=== PATIENT | male | born 1980 | race African-American/Black ===

== ENCOUNTER 2019-01-11 02:53 | Inpatient (IN) | payer MEDICAID ==
[2019-01-10] MEDS: BLOOD SUGAR DIAGNOSTIC 1 EACH STRIP IN SCH (22:00)
[~2019-01-11] VITALS: Ht 182.9 cm; Wt 63.5 kg
[2019-01-11 05:05] VITALS: BP 159/88
[2019-01-11] MEDS ORDERED: MAGNESIUM HYDROXIDE 30 ML UDC PO PRN (06:30)
[2019-01-11] MEDS ORDERED: HYDROMORPHONE INJ 0.5 MG/0.5 ML SYRINGE IV PRN (06:30)
[2019-01-11] MEDS ORDERED: HYDROCODONE/APAP 5/325MG 1 EACH TABLET PO PRN (06:30)
[2019-01-11] MEDS ORDERED: ZOLPIDEM TARTRATE 5 MG TABLET PO PRN (06:30)
[2019-01-11] MEDS ORDERED: ACETAMINOPHEN 325 MG TABLET PO PRN (06:30)
[2019-01-11] MEDS ORDERED: IV NS 0.9% 1,000 ML IV PRN (06:30)
[2019-01-11] MEDS ORDERED: ONDANSETRON HCL/PF 4 MG/2 ML VIAL IVP PRN (06:30)
[2019-01-11] MEDS ORDERED: DEXTROSE 50%-WATER 50 ML DISP.SYRIN IV PRN ×2 (06:30→13:00)
[2019-01-11] MEDS ORDERED: Z GUARD REMEDY 2 OZ OINT TP PRN (06:30)
[2019-01-11] MEDS: BLOOD SUGAR DIAGNOSTIC 1 EACH STRIP IN SCH ×6 (07:56→21:18)
[2019-01-11 08:00] VITALS: BP 127/79
[2019-01-11] MEDS ORDERED: HYDROMORPHONE 1 MG/1 ML DISP.SYRIN IV PRN (08:30)
[2019-01-11] MEDS: INSULIN REGULAR, HUMAN 100 UNIT/ML 3 ML VIAL SQ PRN ×3 (12:07→21:21)
[2019-01-11] MEDS: HYDROMORPHONE 1 MG/1 ML DISP.SYRIN IV PRN ×3 (12:34→20:59)
[2019-01-11] MEDS: diphenhydrAMINE HCL 50 MG/ML VIAL IV PRN ×2 (12:52→20:09)
[2019-01-11] MEDS ORDERED: *INSULIN REGULAR(HUMULIN R)HUM 100 UNIT/ML VIAL SQ PRN (13:00)
--- NOTE | 2019-01-11 15:06 | NUR ---
RECEIVED PATIENT AWAKE, WALKING AROUND, BELIGERANT AND AGITATED. PATIENT REFUSED ALL INTERVENTIONS INCLUDING BLOOD DRAW, BLOOD SUGAR CHECK AND VITAL SIGNS. PATIENT REPEATEDLY ASKING FOR NARCOTIC PAIN MEDICATION. PATIENT YELLED AT RN ORIGINALLY ASSIGNED TO HER USING FOUL AND BERATIVE LANGUAGE. PATIENT A/O X 4, NO SOB, AMBULATORY. WILL CONTINUE TO MONITOR.
--- NOTE | 2019-01-11 15:09 | NUR ---
MS RN NOTE PATIENT BLOOD SUGAR 594 ON FIRST CHECK, <600 ON SECOND CHECK. 10 UNITS REGULAR INSULIN GIVEN PER PROTOCOL. MD NOTIFIED. MD ORDERED AGRESSIVE ACHS SLIDING SCALE. ALSO ORDERED 25 MG BENADRYL. BLOOD SUGAR RECHECKED AT 1300 AND FOUND TO BE 477. 10 UNITS INSULIN COVERAGE GIVEN PER PROTOCOL.. PATIENT REFUSED NEXT BLOOD SUGAR CHECK AT 1330. NO S/S OF HYPERGLYCEMIA NOTED. WILL RECHECK SUGAR SOON PATIENT ALLOWS.
--- NOTE | 2019-01-11 15:17 | NUR ---
MS RN NOTE PATIENT ACTING THREATENING AND VERBALLY ABUSIVE TO RN. PATIENT CONTINUES TO REFUSE CARE. PATIENT CHANGED CLOTHES AND WALKED OUT OF HOSPITAL. PATIENT RETURNED AFTER SECURITY CALLED. PATIENT CONTINUING HIS AGRESSIVE BEHAVIOR AND RFUSAL OF CARE. PATIENT SIGNED AMA AND INSISTS ON COMING AND GOING HE WANTS. WILL CONTINUE TO MONITOR. Addendum: 01/11/19 at 1643 by CHRISTOPHER HWANG RN FORM SIGNED BY PATIENT NOT AN AMA. CHARGE NURSE HAD PATIENT SIGN A "INFORMED CONSENT FOR SMOKING" FORM # [id number] (07/13) PATIENT STATES HE IS GOING IN AND OUT OF BUILDING TO SMOKE.
[2019-01-11 16:00] VITALS: BP_SYST 138; BP_SYST 142; BP_DIAS 79; BP_DIAS 85
[2019-01-11 17:06] LABS: BASOPHILS # (AUTO) 0.1 /CMM (0.0-0.2); BASOPHILS % (AUTO) 0.5 % (0.0-2.0); EOSINOPHILS % (AUTO) 1.4 % (0.0-6.0); HEMATOCRIT 33 % (39-51); HEMOGLOBIN 10.4 g/dL (13.5-17.5); LYMPHOCYTES # (AUTO) 4.5 /CMM (0.8-4.8); LYMPHOCYTES % (AUTO) 39.2 % (20.0-44.0); MEAN CORPUSCULAR HGB CONC 32 g/dl (31.0-36.0); MEAN CORPUSCULAR VOLUME 78 fL (80-96); MONOCYTES # (AUTO) 0.5 /CMM (0.1-1.30); MONOCYTES % (AUTO) 4.4 % (2.0-12.0); NEUTROPHILS # (AUTO) 6.2 /CMM (1.8-8.9); NEUTROPHILS % (AUTO) 54.5 % (43.0-81.0); PLATELET COUNT (AUTO) 710 /CMM (150-450); RED BLOOD CELL COUNT(AUTO) 4.19 MIL/uL (4.5-6.0); WHITE BLOOD COUNT (AUTO) 11.4 K/uL (4.3-11.0)
--- NOTE | 2019-01-11 17:18 | NUR ---
MS RN NOTE POST CRITICAL LAB BLOOD SUGAR DRAW ORDERED. PATIENT REFUSED EARLIER ATTEMPT FOR BLOOD DRAW. CURRENT ATTEMPT FOR BLOOD DRAW PENDING. WILL CONTINUE TO MONITOR. LATEST BLOOD SUGAR RESULT 66 @ 1700.
[2019-01-11 17:35] LABS: CALCIUM, SERUM 9.2 mg/dL (8.5-10.1); CREATININE 1.4 mg/dL (0.6-1.3); MAGNESIUM 1.7 mg/dL (1.8-2.4); POTASSIUM 4.2 mmol/L (3.5-5.1)
[2019-01-11 18:25] LABS: BAND % (MANUAL) 1 % (0.0-5.0); EOSINOPHILS % (MANUAL) 1 % (0-4); LYMPHOCYTES % (MANUAL) 35 % (16-48); MONOCYTES % (MANUAL) 5 % (0-11.0); NEUTROPHILS % (MANUAL) 58 (42-76)
[2019-01-11 20:00] VITALS: BP_SYST 120; BP_DIAS 49; BP_DIAS 59
--- NOTE | 2019-01-11 20:00 | NUR ---
MS RN NOTES RECEIVED PATIENT AWAKE AND PACING AROUND ROOM. PATIENT REMAINS CALM AND REDIRECTED BACK TO BED. CALL LIGHT WITHIN REACH. NO C/O PAIN OR DISCOMFORT. PERIPHERAL LINE INTACT, PATENT, AND REMAINS SALINE LOCKED. PRN BENADRYL 25MG IV GIVEN AND TOLERATED WELL. NURSING SELENA SYSTEM IMPLEMENTED DURING ALL NURSING CARE. BED IN LOW LOCK SETTING. ROOM FREE OF CLUTTER AND BELONGINGS KEPT NEAR BEDSIDE. WILL CONTINUE TO MONITOR.
--- NOTE | 2019-01-11 20:05 | NUR ---
MS RN CLOSING NOTE PATIENT AWAKE, WALKING AROUND, BELIGERANT AND AGITATED. PATIENT REFUSED NUMEROUS INTERVENTIONS EARLIER IN SHIFT, BUT DID ALLOW BLOOD DRAW IN THE AFTERNOON. RESULTS NOTED AND RELAYED TO REDIPPER RN. PATIENT A/O X 4, NO SOB, AMBULATORY. SAFETY MEASURES IN PLACE. CARE ENDORSED TO REDIPPER RN.
--- NOTE | 2019-01-11 21:00 | NUR ---
PATIENT NOTED WITH REPEATED EPISODE OF ELEVATED BLOOD GLUCOSE LEVEL OF 580. NO CHANGES IN LOC, PATIENT AWAKE A/O X4 AND REMAINS ASYMPTOMATIC. WITH STANDING NEW ORDER OF AGGRESSIVE SLIDING SCALE INSULIN COVERAGE, 20UNITS GIVEN PER PROTOCOL. WILL RECHECK BS AND MONITOR FOR EFFECTIVENESS.
--- NOTE | 2019-01-11 22:00 | NUR ---
PATIENT REFUSED BLOOD SUGAR RECHECK DESPITE CONTINUED ENCOURAGEMENT. WAS TOLD BY PATIENT TO GET OUT OF ROOM. WILL RETRY AGAIN WHEN PATIENT CALM AND READY TO COOPERATE.
--- NOTE | 2019-01-12 03:50 | NUR ---
PRN DILAUDID GIVEN FOR C/O GENERALIZED BODY PAIN. PATIENT ALLOWED FOR BS RECHECK AND NOTED AT 59. NO CHANGES IN LOC, AWAKE A/O X4 AND REMAINS ASYMPTOMATIC. ORANGE JUICE AND SNACKS PROVIDED. WILL RECHECK FOR EFFECTIVENESS.
[2019-01-12] MEDS: HYDROMORPHONE 1 MG/1 ML DISP.SYRIN IV PRN ×5 (03:53→21:42)
[2019-01-12 04:00] VITALS: BP 114/73
[2019-01-12] MEDS: diphenhydrAMINE HCL 50 MG/ML VIAL IV PRN ×2 (04:53→10:40)
--- NOTE | 2019-01-12 05:02 | NUR ---
PRN BENADRYL GIVEN ORDERED PER PATIENT REQUEST. BLOOD GLUCOSE RECHECKED AND NOTED AT 179. WILL CONTINUE TO MONITOR.
--- NOTE | 2019-01-12 06:27 | NUR ---
MS RN NOTES PATIENT ASLEEP IN BED WITH NO DISTRESS NOTED. CALL LIGHT WITHIN REACH. PERIPHERAL LINE INTACT AND PATENT. NO FURTHER C/O PAIN OR DISCOMFORT. BED IN LOW LOCK SETTING. ALL BELONGINGS KEPT NEAR BEDSIDE. WILL ENDORSE TO ONCOMING SHIFT.
[2019-01-12] MEDS: BLOOD SUGAR DIAGNOSTIC 1 EACH STRIP IN SCH ×4 (06:32→21:42)
[2019-01-12] MEDS: INSULIN REGULAR, HUMAN 100 UNIT/ML 3 ML VIAL SQ PRN ×2 (06:34→12:53)
[2019-01-12 08:00] VITALS: BP 120/73
[2019-01-12] MEDS ORDERED: diphenhydrAMINE HCL ELIX 25 MG/10 ML UDC PO PRN (11:30)
--- NOTE | 2019-01-12 13:13 | NUR ---
MS RN OPENING NOTE PATIENT RECEIVED SLEEPING IN BED. NO SOB OR DISTRESS NOTED. REPORTED A/O X 4, AMBULATORY. R FOOT IV SL #20 INTACT AND PATENT. SAFETY MEASURES IN PLACE. WILL CONTINUE TO MONITOR.
--- NOTE | 2019-01-12 13:19 | NUR ---
MS RN NOTE PATIENT ATTEMPTED TO REMOVE IV LINE AND PARTIALLY DISLODGED IT THUS REQUIRING RN TO REMOVE IT. NEW # 2O SL IV PLACED IN L FOOT.
--- NOTE | 2019-01-12 13:21 | NUR ---
MS RN NOTE. PATIENT CONTINUES TO BE BELIGERANT AND VERBALLY ABUSIVE. PATIENT REFUSED BLOOD DRAW AT 1200.
--- NOTE | 2019-01-12 13:52 | NUR ---
Social service consult requested by HEATHER Mistry, for possible homelessness. Pt. is a 38 year old male who was admitted to [facility] for sickle cell crisis. SW met with pt. bedside. Pt. is alert and oriented x 4. Pt. was rude at times during the assessment. Pt. states he resides at a transitional house located at [address] [place] [address] in . A. SW was about to ask more questions when pt. became rude and informed SW he doesn't want to answer anymore questions. Pt. is not cooperative. SW left pt's room.
[2019-01-12 16:00] VITALS: BP 110/69
[2019-01-12 16:56] LABS: HEMATOCRIT 33 % (39-51); MEAN CORPUSCULAR HGB CONC 33 g/dl (31.0-36.0); MEAN CORPUSCULAR VOLUME 77 fL (80-96); PLATELET COUNT (AUTO) 761 /CMM (150-450); RED BLOOD CELL COUNT(AUTO) 4.32 MIL/uL (4.5-6.0); WHITE BLOOD COUNT (AUTO) 8.8 K/uL (4.3-11.0)
[2019-01-12 17:03] LABS: CALCIUM, SERUM 9.2 mg/dL (8.5-10.1); CREATININE 0.8 mg/dL (0.6-1.3); POTASSIUM 4.2 mmol/L (3.5-5.1)
--- NOTE | 2019-01-12 19:51 | NUR ---
MS RN CLOSING NOTE PATIENT AWAKE IN BED. A/O X 4, AMBULATORY, NO SOB OR DISTRESS NOTED. PATIENT REFUSED NUMEROUS INTERVENTIONS NOTED THROUGHOUT THE DAY. PATIENT CONTINUES TO LEAVE PREMISES TO SMOKE. PATIENT CONTINUES TO BE NON-COMPLIANT, BELIGERANT AND VERBALLY ABUSIVE TO STAFF. R FOOT IV SL INTACT AND PATENT. SAFETY MEASURES IN PLACE. CALL LIGHT WITHIN REACH. CARE ENDORSED TO CHEMICAL COMPOUNDER HELPER RN.
[2019-01-12 20:00] VITALS: BP 131/84
--- NOTE | 2019-01-12 20:00 | NUR ---
RN NOTES RECEIVED PATIENT AWAKE IN BED, DENIES ANY PAIN AT THIS TIME, IV ACCESS ON HIS LEFT FOOT INTACT AND PATENT, NO SIGNS OF ACUTE RESPIRATORY DISTRESS NOTED, ALL NEEDS ATTENDED, PATIENTS ASKING FOR MORE SNACKS, ALL NEEDS ATTENDED WILL MONITOR ACCORDINGLY.
[2019-01-12 20:12] VITALS: BP 131/84
[2019-01-12 20:54] LABS: BAND % (MANUAL) 3 % (0.0-5.0); EOSINOPHILS % (MANUAL) 1 % (0-4); LYMPHOCYTES % (MANUAL) 29 % (16-48); MONOCYTES % (MANUAL) 6 % (0-11.0); NEUTROPHILS % (MANUAL) 61 (42-76)
[2019-01-12] MEDS ORDERED: INSULIN GLARGINE, 100 UNIT/ML CARTRIDGE SQ SCH (22:00)
[2019-01-13] MEDS: HYDROMORPHONE 1 MG/1 ML DISP.SYRIN IV PRN ×4 (01:51→14:12)
[2019-01-13 04:00] VITALS: BP 117/71
[2019-01-13 05:28] VITALS: BP 117/71
[2019-01-13] MEDS: INSULIN REGULAR, HUMAN 100 UNIT/ML 3 ML VIAL SQ PRN ×2 (06:04→11:44)
[2019-01-13] MEDS: BLOOD SUGAR DIAGNOSTIC 1 EACH STRIP IN SCH ×2 (06:06→11:41)
[2019-01-13 06:50] LABS: BASOPHILS # (AUTO) 0.1 /CMM (0.0-0.2); MONOCYTES # (AUTO) 0.5 /CMM (0.1-1.30)
--- NOTE | 2019-01-13 07:00 | NUR ---
MS RN INITIAL NOTES RECEIVED PT IN BED, A/OX3. PT C/O PAIN LEVEL 9 IN SHOULDERS AND BACK DESPITE DILAUDID IV AN HR AGO. ON ROOM AIR O2 SAT 100%. IV ON LEFT FOOT #20. PT WANTS TO TALK TO SW TODAY. BED IN LOCKED/LOWEST POSITION. CALL LIGHT IN REACH. WILL CONT TO MONITOR.
[2019-01-13 07:01] LABS: CALCIUM, SERUM 9.1 mg/dL (8.5-10.1); CREATININE 1.2 mg/dL (0.6-1.3); POTASSIUM 4.9 mmol/L (3.5-5.1)
--- NOTE | 2019-01-13 07:01 | NUR ---
RN NOTES ALL NEEDS ATTENDED, PATIENT IS ASLEEP AT THIS TIME, ALL NEEDS ATTENDED, INFORMED CABLE WAY OPERATOR CHOCO REGARDING PATIENTS BLOOD GLUCOSE THIS MORNING 401 MG/DL, UNIT OF INSULIN GIVEN PER SLIDING SCALE, PATIENT EATS SNACKS AND ASKS FOOD THROUGHOUT THE NIGHT. NO ORDER FROM CHOCO AT THIS TIME, WILL ENDORSE TO AM NURSE FOR CONTINUITY OF CARE.
[2019-01-13 07:19] LABS: EOSINOPHILS % (AUTO) 3.2 % (0.0-6.0); HEMATOCRIT 33 % (39-51); HEMOGLOBIN 10.9 g/dL (13.5-17.5); LYMPHOCYTES # (AUTO) 4.8 /CMM (0.8-4.8); MEAN CORPUSCULAR HGB CONC 33 g/dl (31.0-36.0); MEAN CORPUSCULAR VOLUME 78 fL (80-96); MONOCYTES % (AUTO) 5.1 % (2.0-12.0); NEUTROPHILS # (AUTO) 3.4 /CMM (1.8-8.9); NEUTROPHILS % (AUTO) 37.7 % (43.0-81.0); PLATELET COUNT (AUTO) 808 /CMM (150-450)
[2019-01-13 08:00] VITALS: BP 116/75
[2019-01-13 10:08] LABS: EOSINOPHILS % (MANUAL) 1 % (0-4); LYMPHOCYTES % (MANUAL) 35 % (16-48); MONOCYTES % (MANUAL) 6 % (0-11.0); NEUTROPHILS % (MANUAL) 58 (42-76)
--- NOTE | 2019-01-13 12:48 | NUR ---
MS RN NOTES NOTIFIED HEATHER RODRÍGUEZ OF PT C/O CHEST PAIN AND SHOULDER PAIN W/ NO RELIEF WITH DILAUDID. NO NEW ORDERS RECEIVED.
--- NOTE | 2019-01-13 15:45 | NUR ---
MS RN NOTES HEATHER RODRÍGUEZ ROUNDING WITH PATIENT. PT STATED, " I AM SICKLING. IM IN PAIN. IM NOT 3 YEARS OLD, " RIPPED OFF HIS IV AND TOLD CLOTHING ROOM SUPERVISOR TO GIVE HIM DISCHARGE PAPERS. PT WAS BLEEDING ON FLOOR WHEN I CHECKED ON HIM 10 MINS LATER. HE REFUSED TO LET ME INTERVENE. PT PUT ON HIS CLOTHES, ASKED FOR DISCHARGE PAPERS AND SLAMMED THE DOOR TO HIS ROOM. NURSING SENIOR TRAINER PROVIDED TAP CARD. CHARGE NURSE, ABA NOTIFIED.
[2019-01-13 16:00] VITALS: BP 107/63
--- NOTE | 2019-01-13 16:14 | NUR ---
MS RN NOTES PT REFUSING DISCHARGE WOUND PICS
[2019-01-13] MEDS ORDERED: Insulin Glargine,Hum SQ (16:42)
[2019-01-13] MEDS ORDERED: INSU100V28 SQ (17:17)
--- NOTE | 2019-01-13 17:35 | NUR ---
MS RN NOTES PT DISCHARGED WITH PRESCRIPTION/ DISCHARGE INSTRUCTIONS. PT REFUSED PICTURES/ BELONGINGS LIST SIGNATURE. PT PULLED OUT IV ON FOOT HIMSELF. GAVE PT TAP CARD. ALL NEEDS ATTENDED TO.
== END 2019-01-13 17:33 | disposition home or self-care (01) | DRG 662 ==
LOC: TELE1 04:37 → MEDSG1 07:55
PROVIDERS: ADMIT Nurse Practitioner Acute Care; ATTEND Registered Nurse
DX: D57.00 Hb-SS disease with crisis, unspecified (principal); N17.0 Acute kidney failure with tubular necrosis; E10.65 Type 1 diabetes mellitus with hyperglycemia; G89.4 Chronic pain syndrome; D56.1 Beta thalassemia; Z59.0 Homelessness; J45.909 Unspecified asthma, uncomplicated; E83.42 Hypomagnesemia; E78.5 Hyperlipidemia, unspecified; Z83.3 Family history of diabetes mellitus; Z83.2 Family history of diseases of the blood and blood-forming organs and certain disorders involving the immune mechanism; Z90.81 Acquired absence of spleen; Z79.4 Long term (current) use of insulin; F12.90 Cannabis use, unspecified, uncomplicated; Z76.5 Malingerer [conscious simulation]; D72.829 Elevated white blood cell count, unspecified; F11.10 Opioid abuse, uncomplicated; Z91.14 Patient's other noncompliance with medication regimen; Z91.19 Patient's noncompliance with other medical treatment and regimen
CPT/HCPCS: 36415; 80048-TC; 80061-TC; 82962-TC; 83021; 83735-TC; 84100-TC; 85025-TC; 85045-TC; 85660; 87081-TC; G0378; J1170; J1200; J1815; J7030; Q0163

== ENCOUNTER 2019-11-24 12:04 | Emergency (ER) | payer MEDICAID, OTHER ==
[~2019-11-24] VITALS: Ht 185.4 cm; Wt 77.1 kg
[~2019-11-24 12:04] MED LIST: INSU100V28 SQ; Insulin Glargine,Hum SQ
--- NOTE | 2019-11-24 12:04 | NUR ---
PT BIB [facility], C/O GENERALIZED BODY PAIN, PT IS AAOX4, NOT IN RESPIRATORY DISTRESS, HOOKED TO MONITOR, KEPT RESTED AND COMFORTABLE, WILL CONTINUE TO MONITOR.
--- NOTE | 2019-11-24 12:44 | NUR ---
SEEN AND EXAMINED BY ROCK RUTH NP.
[2019-11-24] MEDS ORDERED: diphenhydrAMINE HCL 50 MG/ML VIAL IV ONE (13:00)
[2019-11-24] MEDS ORDERED: ONDANSETRON HCL/PF 4 MG/2 ML VIAL IVP ONE (13:00)
[2019-11-24] MEDS ORDERED: IV NS 0.9% 1,000 ML BAG IV ONE (13:00)
[2019-11-24] MEDS ORDERED: HYDROMORPHONE INJ 2 MG/ML DISP.SYRIN IV ONE (13:00)
--- NOTE | 2019-11-24 13:05 | NUR ---
ER PHLEB AT BEDSIDE FOR BLOOD DRAW
[2019-11-24] MEDS ORDERED: HYDROMORPHONE 1 MG/1 ML DISP.SYRIN ONE (13:08)
[2019-11-24] MEDS ORDERED: ONDANSETRON HCL/PF 4 MG/2 ML VIAL ONE (13:08)
[2019-11-24] MEDS ORDERED: diphenhydrAMINE HCL 50 MG/ML VIAL ONE (13:08)
[2019-11-24 13:41] LABS: BASOPHILS # (AUTO) 0.1 /CMM (0.0-0.2); BASOPHILS % (AUTO) 1.1 % (0.0-2.0); EOSINOPHILS % (AUTO) 1.2 % (0.0-6.0); HEMATOCRIT 33 % (39-51); HEMOGLOBIN 10.4 g/dL (13.5-17.5); LYMPHOCYTES # (AUTO) 0.7 /CMM (0.8-4.8); MEAN CORPUSCULAR HGB CONC 32 g/dl (31.0-36.0); MEAN CORPUSCULAR VOLUME 71 fL (80-96); MONOCYTES # (AUTO) 0.8 /CMM (0.1-1.30); MONOCYTES % (AUTO) 9.9 % (2.0-12.0); NEUTROPHILS # (AUTO) 6.5 /CMM (1.8-8.9); NEUTROPHILS % (AUTO) 79.8 % (43.0-81.0); PLATELET COUNT (AUTO) 700 /CMM (150-450); RED BLOOD CELL COUNT(AUTO) 4.63 MIL/uL (4.5-6.0); WHITE BLOOD COUNT (AUTO) 8.2 K/uL (4.3-11.0)
[2019-11-24 13:58] LABS: ALANINE AMINOTRANSFERASE 19 U/L (12-78); ALBUMIN 3.7 g/dL (3.4-5.0); ALKALINE PHOSPHATASE 111 U/L (46-116); ASPARTATE AMINOTRANSFERASE 23 U/L (15-37); BILIRUBIN,DIRECT 0.1 mg/dL (0.0-0.2); BILIRUBIN,TOTAL 0.7 mg/dL (0.2-1.0); CARBON DIOXIDE 27 mmol/L (21-32); CHLORIDE 98 mmol/L (98-107); CREATININE 1.6 mg/dL (0.6-1.3); SODIUM SERUM 134 mmol/L (136-145); TOTAL PROTEIN, SERUM 8.6 g/dL (6.4-8.2); UREA NITROGEN, BLOOD 27 mg/dL (7-18)
[2019-11-24 14:05] LABS: GLUCOSE 621 mg/dL (74-106)
[2019-11-24 14:14] LABS: BAND % (MANUAL) 1 % (0.0-5.0); NEUTROPHILS % (MANUAL) 79 (42-76)
[2019-11-24 14:15] LABS: LYMPHOCYTES % (MANUAL) 14 % (16-48); MONOCYTES % (MANUAL) 6 % (0-11.0)
[2019-11-24] MEDS ORDERED: INSULIN REGULAR, HUMAN 100 UNIT/ML 10 ML VIAL SQ ONE (14:30)
[2019-11-24] MEDS ORDERED: INSULIN REGULAR, HUMAN 100 UNIT/ML 10 ML VIAL ONE (14:49)
[2019-11-24 14:58] VITALS: BP 128/88
--- NOTE | 2019-11-24 15:11 | NUR ---
GAVE MOVESHEET AND CLINICALS TO ADMITTING
[2019-11-24] MEDS ORDERED: INSU100V7 SQ (15:25)
[2019-11-24] MEDS ORDERED: LORA-259 PO (15:25)
[2019-11-24] MEDS ORDERED: HUM10VIA3 SQ (15:25)
[2019-11-24] MEDS ORDERED: HYDR4TAB4 PO (15:25)
[2019-11-24] MEDS ORDERED: INSU100V30 SQ (15:25)
--- NOTE | 2019-11-24 16:19 | NUR ---
IV removed. Catheter intact and site benign. Pressure and 4x4 applied to site. No bleeding noted. Patient does not wish to proceed with medical care recommended by Wil Santiago NP. Patient given information related to possible complications, up to and including , which could occur as a result of leaving the hospital at this time. Patient verbalizes understanding of risks involved due to leaving against medical advice. Patient has signed AMA form.
== END 2019-11-24 16:28 | disposition left against medical advice (07) ==
LOC: ER 12:07
DX: D57.1 Sickle-cell disease without crisis (principal); E11.9 Type 2 diabetes mellitus without complications; F17.200 Nicotine dependence, unspecified, uncomplicated; Z88.6 Allergy status to analgesic agent; Z88.8 Allergy status to other drugs, medicaments and biological substances; Z60.2 Problems related to living alone; Z79.899 Other long term (current) drug therapy; Z79.4 Long term (current) use of insulin; Z59.0 Homelessness
CPT/HCPCS: 36415; 71045; 80048; 80076; 82010; 82962; 84484; 85025; 85730; 93005; 96372; 96374; 96375; 99285; J1170; J1200; J1815; J2405; J7030

== ENCOUNTER 2019-12-11 16:05 | Emergency (ER) | payer OTHER ==
[~2019-12-11] VITALS: Ht 180.3 cm; Wt 73.0 kg
[~2019-12-11 16:05] MED LIST changes: +HUM10VIA3 SQ; +HYDR4TAB4 PO; -INSU100V28 SQ; +INSU100V30 SQ; +INSU100V7 SQ; -Insulin Glargine,Hum SQ; +LORA-259 PO
[2019-12-11] MEDS ORDERED: diphenhydrAMINE HCL 50 MG/ML VIAL ONE ×2 (16:55→20:56)
[2019-12-11] MEDS ORDERED: HYDROMORPHONE 1 MG/1 ML DISP.SYRIN ONE ×3 (16:55→20:58)
--- NOTE | 2019-12-11 16:55 | NUR ---
GENERALIED PAIN "ALL DAY." "I ALSO NEED TO SEE A PSYCH DOCTOR" PATIENT A/OX4, BREATHING EVEN AND UNLABORED, NO SOB NOTED, NEEDS ATTENDED, KEPT COMFORTABLE.
[2019-12-11] MEDS: HYDROMORPHONE INJ 2 MG/ML DISP.SYRIN IV ONE (17:00)
[2019-12-11] MEDS: IV NS 0.9% 1,000 ML BAG IV ONE ×2 (17:00→18:27)
[2019-12-11] MEDS: diphenhydrAMINE HCL 50 MG/ML VIAL IV ONE ×2 (17:00→21:00)
--- NOTE | 2019-12-11 17:25 | NUR ---
PATIENT NO DISTRESS NOTED, ASLEEP BUT AROUSABLE.
[2019-12-11 17:51] LABS: BASOPHILS # (AUTO) 0.2 /CMM (0.0-0.2); BASOPHILS % (AUTO) 1.9 % (0.0-2.0); EOSINOPHILS % (AUTO) 0.8 % (0.0-6.0); HEMATOCRIT 31 % (39-51); HEMOGLOBIN 9.7 g/dL (13.5-17.5); LYMPHOCYTES # (AUTO) 0.5 /CMM (0.8-4.8); LYMPHOCYTES % (AUTO) 5.5 % (20.0-44.0); MEAN CORPUSCULAR HGB CONC 32 g/dl (31.0-36.0); MEAN CORPUSCULAR VOLUME 73 fL (80-96); MONOCYTES # (AUTO) 0.7 /CMM (0.1-1.30); MONOCYTES % (AUTO) 7.8 % (2.0-12.0); NEUTROPHILS # (AUTO) 7.5 /CMM (1.8-8.9); PLATELET COUNT (AUTO) 355 /CMM (150-450); RED BLOOD CELL COUNT(AUTO) 4.26 MIL/uL (4.5-6.0)
[2019-12-11 17:57] LABS: ALBUMIN 4.3 g/dL (3.4-5.0); BILIRUBIN,DIRECT 0.2 mg/dL (0.0-0.2); BILIRUBIN,TOTAL 1.1 mg/dL (0.2-1.0); CALCIUM, SERUM 10.2 mg/dL (8.5-10.1); CREATININE 1.3 mg/dL (0.6-1.3); POTASSIUM 5.6 mmol/L (3.5-5.1); TOTAL PROTEIN, SERUM 8.8 g/dL (6.4-8.2)
[2019-12-11] MEDS ORDERED: INSULIN REGULAR, HUMAN 100 UNIT/ML 10 ML VIAL ONE (18:19)
[2019-12-11 18:20] LABS: APPEARANCE,URINE Clear (CLEAR); BILIRUBIN,URINE Negative (NEGATIVE); BLOOD, URINE Negative Ery/uL (NEGATIVE); COLOR,URINE Yellow (YELLOW); KETONES,URINE >=160 (NEGATIVE); LEUKOCYTE ESTERASE ,URINE Negative (NEGATIVE); NITRITE, URINE Negative (NEGATIVE); PROTEIN,URINE Negative (NEGATIVE); UGLUCOSE >=1000 mg/dL (NEGATIVE); UROBILINOGEN,URINE 0.2 EU/dL (0.2)
[2019-12-11 18:21] LABS: LYMPHOCYTES % (MANUAL) 22 % (16-48); MONOCYTES % (MANUAL) 6 % (0-11.0); NEUTROPHILS % (MANUAL) 72 (42-76)
[2019-12-11] MEDS: INSULIN REGULAR, HUMAN 100 UNIT/ML 10 ML VIAL SQ ONE (18:27)
[2019-12-11] MEDS: HYDROMORPHONE INJ 0.5 MG/0.5 ML SYRINGE IV ONE ×2 (18:28→21:00)
[2019-12-11 18:47] LABS: BACTERIA,URINE Few /HPF (None Seen); RBC,URINE 0-2 /HPF (0-2); SQUAMOUS EPITHELIAL CELL,UR Few /HPF (None Seen); WBC,URINE 0-2 /HPF (0-3)
--- NOTE | 2019-12-11 18:52 | NUR ---
PATIENT RESTING, ASKING FOR FOOD, BUT PER MD, NO FOOD AT THIS TIME.
--- NOTE | 2019-12-11 19:26 | NUR ---
REPORT GIVEN TO WILLIAN LOUIS FOR KIKE.
--- NOTE | 2019-12-11 20:55 | NUR ---
PATIENT PULLED OUT IV
--- NOTE | 2019-12-11 21:08 | NUR ---
PATIENT CURSING AT STAFF. THREW PITCHER OF WATER ON THE FLOOR IN ANGER. PT INCONSOLABLE. J LUIS ALDRICH NOTIFIED.
[2019-12-11 21:52] VITALS: BP 118/80
[2019-12-11 22:20] LABS: CALCIUM, SERUM 9.5 mg/dL (8.5-10.1); CREATININE 1.4 mg/dL (0.6-1.3); POTASSIUM 4.7 mmol/L (3.5-5.1)
--- NOTE | 2019-12-11 23:00 | NUR ---
PT MEDICALLY CLEARED FOR DISCHARGE. PT BECAME AGGRESSIVE ON DISCHARGE. REFUSING PAPERWORK/DISCHARGE INSTRUCTIONS. AMBULATORY WITH STEADY GAIT. REFUSED VITAL SIGN REASSESSMENT. HOSPITAL SECURITY AT BEDSIDE
== END 2019-12-11 23:40 | disposition home or self-care (01) ==
LOC: ER 16:06
DX: D57.00 Hb-SS disease with crisis, unspecified (principal); E10.22 Type 1 diabetes mellitus with diabetic chronic kidney disease; N18.9 Chronic kidney disease, unspecified; F17.200 Nicotine dependence, unspecified, uncomplicated; Z88.6 Allergy status to analgesic agent; Z60.2 Problems related to living alone; Z79.899 Other long term (current) drug therapy
CPT/HCPCS: 36415; 71045; 80048 ×2; 80076; 81001; 82010; 82962 ×2; 85025; 85045; 85730; 93005; 96372 ×2; 96374; 96375; 96376; 99285; J1170 ×3; J1200 ×2; J1815; J7030 ×2; 81000-TC

== ENCOUNTER 2020-07-26 21:50 | Emergency (ER) | payer OTHER ==
[~2020-07-26] VITALS: Ht 180.3 cm; Wt 76.2 kg
[2020-07-26 21:50] VITALS: BP 135/95
--- NOTE | 2020-07-26 22:40 | NUR ---
DR FAULKNER AT BED SIDE
--- NOTE | 2020-07-26 22:45 | NUR ---
Patient does not wish to proceed with medical care recommended by Dr. Perea. Patient given information related to possible complications, up to and including , which could occur as a result of leaving the hospital at this time. Patient verbalizes understanding of risks involved due to leaving against medical advice. Written and verbal after care instructions given however pt refused to sign the paperwork.
== END 2020-07-26 22:45 | disposition left against medical advice (07) ==
LOC: ER 21:54
DX: G89.4 Chronic pain syndrome (principal); Z76.5 Malingerer [conscious simulation]; R05 Cough; R06.02 Shortness of breath; E11.9 Type 2 diabetes mellitus without complications; D57.1 Sickle-cell disease without crisis; F17.210 Nicotine dependence, cigarettes, uncomplicated; Z88.6 Allergy status to analgesic agent; Z88.8 Allergy status to other drugs, medicaments and biological substances; Z60.2 Problems related to living alone; Z79.899 Other long term (current) drug therapy; Z79.4 Long term (current) use of insulin